=== PATIENT | male | born 1995 | race African-American/Black ===

== ENCOUNTER 2021-09-15 06:44 | Outpatient (CLI) | payer OTHER ==
--- NOTE | 2021-09-15 09:11 | Ultrasound Report ---
PROCEDURE: Abdomen Limited INDICATIONS: LUQ MASS TECHNIQUE: Real-time focused scanning was performed of the abdomen, with image documentation. COMPARISON: None. FINDINGS: A 1.9 x 1.5 x 1.3 cm, ovoid echogenic lesion is seen in the area of clinical concern (left flank), which does not demonstrate internal vascularity. IMPRESSION: 1. 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 If the lesion continues to enlarge or becomes painful, consider sonographic follow-up or magnetic res onance imaging for further evaluation. Reviewed by: Armond Addison MD on 09/15/2021 9:10 AM PST Approved by: Armond Addison MD on 09/15/2021 9:10 AM PST Station ID: [id number]
== END 2021-09-15 06:45 | disposition home or self-care (01) ==
LOC: DI 06:44
PROVIDERS: ATTEND Physician Assistant
DX: R19.02 Left upper quadrant abdominal swelling, mass and lump (principal)

== ENCOUNTER 2023-11-17 06:55 | Outpatient (CLI) | payer OTHER ==
--- NOTE | 2023-11-17 19:28 | Ultrasound Report ---
PROCEDURE: Abdomen Limited INDICATIONS: LEFT ABD LUMP TECHNIQUE: Real-time focused scanning was performed of the abdomen, with image documentation. COMPARISONS: Ultrasound abdomen 09/15/2021. FINDINGS: Sonographic images at the site of previous lipoma excision demonstrate scar. No underlying mass. IMPRESSION: No residual mass identified. Reviewed by: Hamida Razo MD on 11/17/2023 7:27 PM PST Approved by: Hamida Razo MD on 11/17/2023 7:27 PM PST Station ID: [id number]
== END 2023-11-17 06:56 | disposition home or self-care (01) ==
LOC: DI 06:55
PROVIDERS: ATTEND Student in an Organized Health Care Education/Training Program
DX: L98.9 Disorder of the skin and subcutaneous tissue, unspecified (principal)